=== PATIENT | female | born 1995 | race Caucasian/White ===

== ENCOUNTER 2017-08-21 18:01 | Emergency (ER) | payer OTHER ==
[~2017-08-21] VITALS: Ht 190.5 cm; Wt 61.2 kg
[~2017-08-21 18:01] MED LIST: [UNRECOGNIZED DRUG - CODE] PO
[2017-08-21 18:06] VITALS: BP 138/70
--- NOTE | 2017-08-21 18:15 | NUR ---
TO LOBBY, A/W BECCA VICK NOTED
--- NOTE | 2017-08-21 20:58 | NUR ---
AMBULATED TO ER BED 4
--- NOTE | 2017-08-21 20:58 | NUR ---
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 PT WAS APOLOGIZED TO; AND PLACED IN ER BED 4, SOON I WAS INFORMED THAT THE PT HAD NOT BEEN SEEN. ER MD DR FIELDS MADE AWARE.
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
[2017-08-21 21:56] VITALS: BP 129/82
--- NOTE | 2017-08-21 21:56 | NUR ---
Patient discharged with v/s stable. Written and verbal after care instructions given and explained. Patient alert, oriented and verbalized understanding of instructions. Ambulatory with steady gait. All questions addressed prior to discharge. ID band removed. Patient advised to follow up with PMD. Rx of IBUPROFEN AND FLEXERIL given. Patient educated on indication of medication including possible reaction and side effects. Opportunity to ask questions provided and answered.
== END 2017-08-21 21:56 | disposition home or self-care (01) ==
LOC: MED 18:01
DX: M25.512 Pain in left shoulder (principal); J45.909 Unspecified asthma, uncomplicated; Z79.899 Other long term (current) drug therapy; Z88.8 Allergy status to other drugs, medicaments and biological substances; Z91.018 Allergy to other foods; V49.50XA Passenger injured in collision with unspecified motor vehicles in traffic accident, initial encounter; Y93.89 Activity, other specified; Y92.89 Other specified places as the place of occurrence of the external cause; Y99.8 Other external cause status
CPT/HCPCS: 71045; 72072; 72100; 73590; 81025; 99284

== ENCOUNTER 2019-02-23 01:30 | Emergency (ER) | payer OTHER ==
[~2019-02-23] VITALS: Ht 160 cm; Wt 59.0 kg
[2019-02-23 01:34] VITALS: BP 140/79
--- NOTE | 2019-02-23 01:34 | NUR ---
TO BED # 06 AMBULATORY
--- NOTE | 2019-02-23 01:45 | NUR ---
23 Y/O FEMALE PRESENTS TO ED, C/O SHAKINESS AND ANXIETY. 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 PT HAS NO HX OF DRUG USE. PT'S FIANCE STATES THAT PT STARTED HAVING ANXIETY AND TREMORS AFTER INGESTION. PT IS SLOW TO SPEECH AND SLOW TO PROCESS. MINIMAL WORDS SPOKEN, UNABLE TO VERBALIZE HER WELL BEING. PT IS ALERT TO PERSON, PLACE, TIME, AND EVENT. PT HAS SLOW UNSTEADY GAIT, AMBULATES WITH ASSISTANCE DUE TO BEING UNDER THE INFLUENCE OF DRUG. PT HAS NO MEDICAL HX. PT VSS. DR BENAVIDES AWARE. WILL CONTINUE TO MONITOR.
[2019-02-23 02:20] LABS: BARBITURATE, URINE NEG. ng/ml (NEG <=200); BENZODIAZEPINE, URINE NEG. ng/mL (NEG <=200); CANNABINOID, URINE POS. ng/mL (NEG <=50); COCAINE, URINE NEG. ng/mL (NEG <=300); OPIATE, URINE NEG. ng/mL (NEG <=2000); PHENCYCLIDINE SCREEN,URINE NEG. ng/mL (NEG <=25)
[2019-02-23] MEDS ORDERED: NACL 0.9% 2,000 ML IV ONE (02:20)
--- NOTE | 2019-02-23 02:56 | NUR ---
PT AWAKE, LAYING ON BED. FIANCE AT BEDSIDE. IVF STILL INFUSING. PT STATES FEELING BETTER AND LESS ANXIOUS. PT VSS. DR BENAVIDES AWARE. WILL CONTINUE TO MONITOR.
[2019-02-23 03:24] VITALS: BP 142/72
--- NOTE | 2019-02-23 03:24 | NUR ---
PT DISCHARGED WITH PAPERWORK. NO RX PROVIDED. EDUCATED PT REGARDING DISCHARGE DIAGNOSIS. PT VERBALIZED UNDERSTANDING OF TEACHING. PT ABLE TO AMBULATE SELF WITH SLOW STEADY GAIT. TOLD PT TO FOLLOW UP WITH PCP AND WHEN TO RETURN TO ED. PT VSS. ALL QUESTIONS ANSWERED.
== END 2019-02-23 03:24 | disposition home or self-care (01) ==
LOC: MED 01:30
DX: T40.7X5A Adverse effect of cannabis (derivatives), initial encounter (principal); J45.909 Unspecified asthma, uncomplicated; Z79.899 Other long term (current) drug therapy; Z91.018 Allergy to other foods; Y92.89 Other specified places as the place of occurrence of the external cause
CPT/HCPCS: 80305; 99283; J7030

== ENCOUNTER 2019-08-22 19:16 | Emergency (ER) | payer MEDICAID, OTHER ==
[~2019-08-22] VITALS: Ht 160 cm; Wt 63.0 kg
[2019-08-22 19:34] VITALS: BP 128/69
--- NOTE | 2019-08-22 19:38 | NUR ---
PT AMBULATED TO LOBBY WITH STEADY GAIT
--- NOTE | 2019-08-22 19:51 | NUR ---
PT TAKEN TO BED 6
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
--- NOTE | 2019-08-22 20:47 | NUR ---
Dr. Tan examining patient.
[2019-08-22] MEDS ORDERED: KETOROLAC 60 MG/2 ML VIAL IM ONE (20:50)
--- NOTE | 2019-08-22 20:55 | NUR ---
Thiago hughesfunmi in ED - 08/22/19 at 2121 by [email or web address] PATIENT STATES THAT SHE DOES NOT WANT MEDICATION OF TORADOL. SHE STATES THAT SHE IS UNSURE OF DIAGNOSIS AND WANTS TO SPEAK TO CHARGE NURSE
--- NOTE | 2019-08-22 20:55 | NUR ---
PATIENT STATES THAT SHE DOES WANT TORADOL MEDICATION AFTER ALL, DR PICKARD NOTIFIED.
--- NOTE | 2019-08-22 21:03 | NUR ---
CHARGE NURSE WILBERT AT BEDSIDE
--- NOTE | 2019-08-22 21:03 | NUR ---
Thiago hughesfunmi in ED - 08/22/19 at 2120 by [email or web address] PATIENT STATES THAT SHE DOES WANT TORADOL MEDICATION AFTER ALL, DR PICKARD NOTIFIED.
--- NOTE | 2019-08-22 21:03 | NUR ---
Thiago [email or web address] in [facility] - 08/22/19 at 2121 by [email or web address] CHARGE NURSE ATKINS AT BEDSIDE
--- NOTE | 2019-08-22 21:08 | NUR ---
Thiago hughesfunmi in ED - 08/22/19 at 2121 by [email or web address] PATIENT STATES THAT SHE DOES WANT TORADOL MEDICATION AFTER ALL, DR PICKARD NOTIFIED.
--- NOTE | 2019-08-22 21:08 | NUR ---
PATIENT STATES THAT SHE DOES WANT TORADOL MEDICATION AFTER ALL, DR PICKARD NOTIFIED.
[2019-08-22 22:09] VITALS: BP 128/69
--- NOTE | 2019-08-22 22:09 | NUR ---
Patient discharged with v/s stable. Written and verbal after care instructions given and explained. Patient alert, oriented and verbalized understanding of instructions. Ambulatory with steady gait. All questions addressed prior to discharge. ID band removed. Patient advised to follow up with PMD. Rx of MOTRIN WAS given. Patient educated on indication of medication including possible reaction and side effects. Opportunity to ask questions provided and answered. PT STATED THAT HER PAIN DECREASED FROM 6 TO 5/10. PT HAD SOME CONCERNS ABOUT HER DIAGNOSIS. PT WAS EDUCATED AND INSTRUCTED TO FOLLOW UP WITH PCP OR TO RETURN IF PT STILL HAS PAIN OR CONCERNS. PT UNDERSTOOD.
== END 2019-08-22 22:09 | disposition home or self-care (01) ==
LOC: MED 19:16
DX: R59.1 Generalized enlarged lymph nodes (principal); J45.909 Unspecified asthma, uncomplicated; Z79.899 Other long term (current) drug therapy; Z91.018 Allergy to other foods
CPT/HCPCS: 81002; 81025; 96372; 99283; J1885